=== PATIENT | male | born 1945 | race Caucasian/White ===

== ENCOUNTER → 2020-06-27 | Day surgery (SDC) | payer OTHER ==
[2020-06-24 14:57] LABS: BASOPHILS # (AUTO) 0.1 (0.0-0.1); BASOPHILS % 0.3 % (0.0-1.0); EOSINOPHILS # (AUTO) 0.1 (0.0-0.4); EOSINOPHILS % 0.4 % (0.0-6.0); HEMATOCRIT 43.4 % (38.2-49.6); HEMOGLOBIN 13.9 g/dL (14.0-18.0); LYMPHOCYTES # (AUTO) 6.7 (1.0-3.2); LYMPHOCYTES % 39.7 % (18.0-39.1); MEAN CORPUSCULAR HEMOGLOBIN 31.8 pg (28-32); MEAN CORPUSCULAR VOLUME 99.3 fL (81-99); MONOCYTES % 6.1 % (4.4-11.3); NEUTROPHILS # (AUTO) 8.9 (2.1-6.9); NEUTROPHILS % 53.1 % (38.7-80.0); PLATELET COUNT 161 x10e3/uL (140-360); RED BLOOD COUNT 4.37 x10e6/uL (4.3-5.7)
[~2020-06-27] MED LIST: BELBUCA300 MCG PO; ECOTRIN81 MG PO; FUROSEMIDE40 MG PO; GABAPENTIN300 MG PO; LIDOCAINE HCL 2% LOCAL INJ 5 ML SDV VIAL INJ ONE; MIDAZOLAM HCL 2 MG/2 ML VIAL ONE; OSCAL; PROPOFOL IV EMULSION 10 MG/ML 20 ML VIAL ONE; ROPINIROLE HCL1 MG PO; VASOTEC5 MG PO; ZETIA10 MG PO
[2020-06-27 12:39] VITALS: BP 129/69
== END | disposition home or self-care (01) ==
LOC: OR 08:31
PROVIDERS: ATTEND Internal Medicine Gastroenterology
DX: Z12.11 Encounter for screening for malignant neoplasm of colon (principal); K63.5 Polyp of colon; K57.30 Diverticulosis of large intestine without perforation or abscess without bleeding; K44.9 Diaphragmatic hernia without obstruction or gangrene; I25.810 Atherosclerosis of coronary artery bypass graft(s) without angina pectoris; E66.01 Morbid (severe) obesity due to excess calories; I10 Essential (primary) hypertension; J45.909 Unspecified asthma, uncomplicated; E78.00 Pure hypercholesterolemia, unspecified; K42.9 Umbilical hernia without obstruction or gangrene; Z01.810 Encounter for preprocedural cardiovascular examination; Z01.812 Encounter for preprocedural laboratory examination; Z20.828 Contact with and (suspected) exposure to other viral communicable diseases; Z79.82 Long term (current) use of aspirin; Z68.41 Body mass index [BMI] 40.0-44.9, adult; Z95.1 Presence of aortocoronary bypass graft
CPT/HCPCS: 36415; 45385; 85025; 93005; J2001; J2250; J2704; U0002; 45378

== ENCOUNTER 2021-11-23 12:15 | Inpatient (IN) | payer MEDICARE, OTHER ==
[~2021-11-23] VITALS: Ht 177.8 cm; Wt 116.1 kg
[2021-11-23] VITALS (14 sets, daily range): BP systolic 90–132; BP diastolic 45–62
[~2021-11-23 12:15] MED LIST changes: -LIDOCAINE HCL 2% LOCAL INJ 5 ML SDV VIAL INJ ONE; -MIDAZOLAM HCL 2 MG/2 ML VIAL ONE; -PROPOFOL IV EMULSION 10 MG/ML 20 ML VIAL ONE
[2021-11-23] MEDS ORDERED: GLUCAGON FOR INJ 1 MG VIAL IV ONE (13:00)
[2021-11-23] MEDS ORDERED: SODIUM CHLORIDE 0.9% 500ML 500 ML IV ONE ×2 (13:00→15:45)
[2021-11-23] MEDS ORDERED: ONDANSETRON HCL INJ 2MG/ML 2ML 2 MG/ML VIAL IV NR (13:00)
[2021-11-23 13:18] LABS: BASOPHILS % 0.2 % (0.0-1.0); EOSINOPHILS # (AUTO) 0.1 (0.0-0.4); EOSINOPHILS % 0.7 % (0.0-6.0); HEMATOCRIT 40.2 % (38.2-49.6); HEMOGLOBIN 13.2 g/dL (14.0-18.0); LYMPHOCYTES % 29.5 % (18.0-39.1); MEAN CORPUSCULAR HEMOGLOBIN 32.1 pg (28-32); MEAN CORPUSCULAR HGB CONC 32.8 g/dL (31-35); MEAN CORPUSCULAR VOLUME 97.8 fL (81-99); MONOCYTES # (AUTO) 1.2 (0.2-0.8); MONOCYTES % 9.1 % (4.4-11.3); NEUTROPHILS # (AUTO) 8.1 (2.1-6.9); NEUTROPHILS % 60.1 % (38.7-80.0); PLATELET COUNT 173 x10e3/uL (140-360); RED BLOOD COUNT 4.11 x10e6/uL (4.3-5.7); RED CELL DISTRIBUTION WIDTH 13.5 % (11.7-14.4)
[2021-11-23] MEDS ORDERED: COREG6.25 MG PO (13:25)
[2021-11-23] MEDS ORDERED: SPIRONOLACTONE25 MG PO (13:25)
[2021-11-23 13:42] LABS: B-TYPE NATRIURETIC PEPTIDE2 40.9 pg/mL (0-100)
[2021-11-23 13:44] LABS: INR 0.98; PROTHROMBIN TIME 13.9 seconds (11.9-14.5)
[2021-11-23 13:45] LABS: PARTIAL THROMBOPLASTIN TIME 26.4 seconds (23.8-35.5)
[2021-11-23 13:57] LABS: ALBUMIN/GLOBULIN RATIO 0.8 (0.8-2.0); ANION GAP 20.8 mmol/L (8-16); CALCIUM 8.3 mg/dL (8.4-10.2); CREATININE, SERUM 3.99 mg/dL (0.72-1.25); MAGNESIUM 2.6 MG/DL (1.3-2.1); POTASSIUM 3.8 mmol/L (3.5-5.1)
[2021-11-23 14:03] LABS: CREATINE KINASE MB 5.9 ng/mL (0-5.0)
[2021-11-23] MEDS ORDERED: Vancomycin IV 1 GM in SODIUM CHLORIDE 0.9% 250ML 250 ML IV ONE (14:15)
[2021-11-23] MEDS ORDERED: CEFEPIME 2 GM in SODIUM CHLORIDE 0.9% 100 ML IV ONE (14:15)
[2021-11-23] MEDS ORDERED: SODIUM CHLORIDE 0.9% 1000ML 1,000 ML IV STA (16:09)
[2021-11-23] MEDS ORDERED: FAMOTIDINE 20 MG/2 ML VIAL IV SCH (16:30)
[2021-11-23] MEDS ORDERED: ONDANSETRON HCL INJ 2MG/ML 2ML 2 MG/ML VIAL IV PRN (16:30)
[2021-11-23 17:11] LABS: CLARITY,URINE CLEAR (CLEAR); COLOR,URINE YELLOW (YELLOW); KETONES,URINE NEGATIVE (NEGATIVE); LEUKOCYTE ESTERASE ,URINE NEGATIVE (NEGATIVE); NITRITE,URINE NEGATIVE (NEGATIVE); PROTEIN,URINE DIPSTICK 2+ (NEGATIVE); URINE UROBILINOGEN 0.2 mg/dL (0.2 - 1)
[2021-11-23 17:18] LABS: BACTERIA,URINE MODERATE /HPF; EPITHELIAL CELLS,URINE FEW /LPF; HYALINE CASTS 0-1 (0-1); RBC,URINE 0-5 /HPF (0-5); WBC,URINE (MAN) 0-5 /HPF (0-5)
[2021-11-23] MEDS ORDERED: PNEUMOCOCCAL VACCINE POLYVALENT 23 MCG/0.5 ML VIAL IM PRN (18:00)
[2021-11-23 19:07] LABS: CREATINE KINASE 127 IU/L (30-200)
[2021-11-23] MEDS ORDERED: DOCUSATE SODIUM 100 MG CAP PO PRN (22:45)
[2021-11-23] MEDS ORDERED: GUAIFENESIN/DEXTROMETHORPHAN LIQD 5 ML UDC PO PRN (22:45)
[2021-11-23] MEDS ORDERED: MELATONIN 3 MG TAB PO PRN (22:45)
[2021-11-23] MEDS ORDERED: ACETAMINOPHEN 325 MG TAB PO PRN (22:45)
[2021-11-23] MEDS ORDERED: ALBUTEROL SULF 0.083% NEB SOLN 3 ML NEB NEB PRN (22:45)
[2021-11-23] MEDS ORDERED: HYDRALAZINE HCL 20 MG/ML VIAL IV PRN (22:45)
[2021-11-23] MEDS ORDERED: MAGNESIUM/ALUMINUM/SIMETHICONE 30 ML UDC PO PRN (22:45)
[2021-11-23] MEDS: ROPINIROLE HCL 1 MG TAB PO SCH (23:00)
[2021-11-24] VITALS (80 sets, daily range): BP systolic 68–140; BP diastolic 40–99
[2021-11-24] MEDS: Doxycycline IV 100 MG in SODIUM CHLORIDE 0.9% 100 ML IV SCH ×3 (00:27→21:51)
[2021-11-24 01:09] LABS: CREATINE KINASE 120 IU/L (30-200)
[2021-11-24 05:10] LABS: BASOPHILS % 0.3 % (0.0-1.0); EOSINOPHILS # (AUTO) 0.2 (0.0-0.4); EOSINOPHILS % 1.2 % (0.0-6.0); HEMATOCRIT 43.3 % (38.2-49.6); HEMOGLOBIN 14.3 g/dL (14.0-18.0); LYMPHOCYTES # (AUTO) 4.5 (1.0-3.2); LYMPHOCYTES % 33.1 % (18.0-39.1); MEAN CORPUSCULAR HEMOGLOBIN 32.1 pg (28-32); MEAN CORPUSCULAR VOLUME 97.1 fL (81-99); MONOCYTES # (AUTO) 1.2 (0.2-0.8); MONOCYTES % 8.7 % (4.4-11.3); NEUTROPHILS # (AUTO) 7.7 (2.1-6.9); NEUTROPHILS % 56.5 % (38.7-80.0); PLATELET COUNT 215 x10e3/uL (140-360); RED BLOOD COUNT 4.46 x10e6/uL (4.3-5.7); RED CELL DISTRIBUTION WIDTH 13.2 % (11.7-14.4)
[2021-11-24 05:48] LABS: ALBUMIN 2.9 g/dL (3.5-5.0); ALBUMIN/GLOBULIN RATIO 0.7 (0.8-2.0); ANION GAP 17.9 mmol/L (8-16); CALCIUM 8.5 mg/dL (8.4-10.2); CHOL/HDL RATIO 4.5 (3.9-4.7); CREATININE, SERUM 2.53 mg/dL (0.72-1.25); POTASSIUM 3.9 mmol/L (3.5-5.1)
[2021-11-24 05:49] LABS: CREATINE KINASE 120 IU/L (30-200); MAGNESIUM 2.5 MG/DL (1.3-2.1); PHOSPHORUS 4.6 MG/DL (2.3-4.7)
[2021-11-24] MEDS: HEPARIN SOD (PORCINE) 5,000 UNIT/ML VIAL SC SCH ×3 (06:00→21:51)
[2021-11-24 06:11] LABS: FREE THYROXINE INDEX 2.069 (1.4-3.8); THYROID STIMULATING HORMONE 2.647 uIU/mL (0.350-4.940)
[2021-11-24 06:12] LABS: FERRITIN 214.47 ng/mL (21.81-274.66)
[2021-11-24] MEDS: FAMOTIDINE 20 MG/2 ML VIAL IV SCH (08:33)
[2021-11-24] MEDS: DOCUSATE SODIUM 100 MG CAP PO SCH ×2 (08:33→12:20)
[2021-11-24] MEDS: ASPIRIN 325 MG TAB EC PO SCH (08:33)
[2021-11-24] MEDS: EZETIMIBE 10 MG TAB PO SCH (08:34)
[2021-11-24] MEDS: MULTIVITAMINS/MINERALS TAB PO SCH (08:34)
[2021-11-24] MEDS: SENNOSIDES 8.6 MG TAB PO SCH (08:34)
[2021-11-24] MEDS ORDERED: HEPARIN SOD (PORCINE) 5,000 UNIT/ML VIAL SC SCH (09:00)
[2021-11-24] MEDS ORDERED: GABAPENTIN 300 MG CAP PO SCH (09:00)
[2021-11-24] MEDS: GABAPENTIN 300 MG CAP PO SCH ×2 (09:30→21:50)
[2021-11-24 10:10] LABS: EOSINOPHILS % (MANUAL) 1 % (0-7); LYMPHOCYTES % (MANUAL) 27 % (19-48); MONOCYTES % (MANUAL) 8 % (3.4-9.0); NEUTROPHILS % (MANUAL) 64 % (40-74)
[2021-11-24 10:11] LABS: PLATELET ESTIMATE ADEQUATE; PLATELET MORPHOLOGY COMMENT FEW LARGE; RBC MORPHOLOGY COMMENT NORMAL
[2021-11-24] MEDS ORDERED: JARDIANCE10 MG PO (15:49)
[2021-11-24] MEDS ORDERED: SENNA8.6 MG PO (15:52)
[2021-11-24] MEDS ORDERED: DOCUSATE SODIU100 MG PO (15:52)
[2021-11-24] MEDS: ROPINIROLE HCL 1 MG TAB PO SCH (21:50)
[2021-11-25] VITALS (95 sets, daily range): BP systolic 61–137; BP diastolic 40–93
[2021-11-25 04:59] LABS: BASOPHILS % 0.3 % (0.0-1.0); EOSINOPHILS # (AUTO) 0.3 (0.0-0.4); EOSINOPHILS % 2.5 % (0.0-6.0); HEMATOCRIT 42.4 % (38.2-49.6); HEMOGLOBIN 13.8 g/dL (14.0-18.0); LYMPHOCYTES # (AUTO) 5.1 (1.0-3.2); LYMPHOCYTES % 46.4 % (18.0-39.1); MEAN CORPUSCULAR HEMOGLOBIN 31.9 pg (28-32); MEAN CORPUSCULAR HGB CONC 32.5 g/dL (31-35); MEAN CORPUSCULAR VOLUME 97.9 fL (81-99); MONOCYTES # (AUTO) 0.9 (0.2-0.8); MONOCYTES % 7.8 % (4.4-11.3); NEUTROPHILS # (AUTO) 4.7 (2.1-6.9); NEUTROPHILS % 42.7 % (38.7-80.0); PLATELET COUNT 195 x10e3/uL (140-360); RED BLOOD COUNT 4.33 x10e6/uL (4.3-5.7); RED CELL DISTRIBUTION WIDTH 13.2 % (11.7-14.4)
[2021-11-25 05:39] LABS: ALBUMIN 2.9 g/dL (3.5-5.0); ALBUMIN/GLOBULIN RATIO 0.8 (0.8-2.0); CALCIUM 8.6 mg/dL (8.4-10.2); CREATININE, SERUM 1.46 mg/dL (0.72-1.25); MAGNESIUM 2.3 MG/DL (1.3-2.1)
[2021-11-25] MEDS: HEPARIN SOD (PORCINE) 5,000 UNIT/ML VIAL SC SCH ×3 (06:10→21:34)
[2021-11-25] MEDS: MULTIVITAMINS/MINERALS TAB PO SCH (08:23)
[2021-11-25] MEDS: GABAPENTIN 300 MG CAP PO SCH ×2 (08:23→21:33)
[2021-11-25] MEDS: FAMOTIDINE 20 MG/2 ML VIAL IV SCH (08:23)
[2021-11-25] MEDS: ASPIRIN 325 MG TAB EC PO SCH (08:23)
[2021-11-25] MEDS: EZETIMIBE 10 MG TAB PO SCH (08:24)
[2021-11-25] MEDS: DOCUSATE SODIUM 100 MG CAP PO SCH (08:24)
[2021-11-25] MEDS: SENNOSIDES 8.6 MG TAB PO SCH (08:24)
[2021-11-25] MEDS: Doxycycline IV 100 MG in SODIUM CHLORIDE 0.9% 100 ML IV SCH ×2 (10:24→21:33)
[2021-11-25 15:55] LABS: CREATININE,URINE RANDOM 55.82 mg/dL (63-166); TOTAL PROTEIN 24HR, URINE 308.1 mg/24hr (50-100); TOTAL PROTEIN, URINE 10.7 mg/dL (1-14)
[2021-11-25] MEDS: ROPINIROLE HCL 1 MG TAB PO SCH (21:33)
[2021-11-26] VITALS (44 sets, daily range): BP systolic 86–154; BP diastolic 42–127
[2021-11-26 05:06] LABS: BASOPHILS % 0.3 % (0.0-1.0); EOSINOPHILS # (AUTO) 0.2 (0.0-0.4); EOSINOPHILS % 1.9 % (0.0-6.0); HEMATOCRIT 41.9 % (38.2-49.6); HEMOGLOBIN 13.8 g/dL (14.0-18.0); LYMPHOCYTES # (AUTO) 4.9 (1.0-3.2); LYMPHOCYTES % 44.4 % (18.0-39.1); MEAN CORPUSCULAR HEMOGLOBIN 31.7 pg (28-32); MEAN CORPUSCULAR HGB CONC 32.9 g/dL (31-35); MEAN CORPUSCULAR VOLUME 96.1 fL (81-99); MONOCYTES # (AUTO) 0.8 (0.2-0.8); MONOCYTES % 7.4 % (4.4-11.3); NEUTROPHILS % 45.6 % (38.7-80.0); PLATELET COUNT 181 x10e3/uL (140-360); RED BLOOD COUNT 4.36 x10e6/uL (4.3-5.7); RED CELL DISTRIBUTION WIDTH 13.2 % (11.7-14.4)
[2021-11-26 05:28] LABS: ALBUMIN 2.9 g/dL (3.5-5.0); ALBUMIN/GLOBULIN RATIO 0.8 (0.8-2.0); ANION GAP 12.2 mmol/L (8-16); CALCIUM 8.6 mg/dL (8.4-10.2); CREATININE, SERUM 1.04 mg/dL (0.72-1.25); MAGNESIUM 2.1 MG/DL (1.3-2.1); POTASSIUM 4.2 mmol/L (3.5-5.1)
[2021-11-26] MEDS: HEPARIN SOD (PORCINE) 5,000 UNIT/ML VIAL SC SCH ×3 (05:42→22:00)
[2021-11-26] MEDS: ASPIRIN 325 MG TAB EC PO SCH (08:05)
[2021-11-26] MEDS: FAMOTIDINE 20 MG/2 ML VIAL IV SCH (08:05)
[2021-11-26] MEDS: EZETIMIBE 10 MG TAB PO SCH (08:05)
[2021-11-26] MEDS: SENNOSIDES 8.6 MG TAB PO SCH (08:05)
[2021-11-26] MEDS: MULTIVITAMINS/MINERALS TAB PO SCH (08:05)
[2021-11-26] MEDS: GABAPENTIN 300 MG CAP PO SCH ×2 (08:05→21:58)
[2021-11-26] MEDS: DOCUSATE SODIUM 100 MG CAP PO SCH (08:05)
[2021-11-26 08:16] LABS: EOSINOPHILS % (MANUAL) 1 % (0-7); LYMPHOCYTES % (MANUAL) 43 % (19-48); MONOCYTES % (MANUAL) 4 % (3.4-9.0); NEUTROPHILS % (MANUAL) 52 % (40-74); PLATELET ESTIMATE ADEQUATE; PLATELET MORPHOLOGY COMMENT NORMAL; RBC MORPHOLOGY COMMENT NORMAL
[2021-11-26] MEDS: Doxycycline IV 100 MG in SODIUM CHLORIDE 0.9% 100 ML IV SCH ×2 (11:26→21:59)
[2021-11-26] MEDS: ROPINIROLE HCL 1 MG TAB PO SCH (21:58)
[2021-11-27] VITALS (7 sets, daily range): BP systolic 96–141; BP diastolic 57–69
[2021-11-27] MEDS: HEPARIN SOD (PORCINE) 5,000 UNIT/ML VIAL SC SCH ×3 (03:11→22:00)
[2021-11-27 06:29] LABS: BASOPHILS # (AUTO) 0.1 (0.0-0.1); BASOPHILS % 0.6 % (0.0-1.0); EOSINOPHILS # (AUTO) 0.2 (0.0-0.4); EOSINOPHILS % 2.3 % (0.0-6.0); HEMATOCRIT 40.9 % (38.2-49.6); HEMOGLOBIN 13.4 g/dL (14.0-18.0); LYMPHOCYTES # (AUTO) 4.3 (1.0-3.2); LYMPHOCYTES % 47.5 % (18.0-39.1); MEAN CORPUSCULAR HEMOGLOBIN 31.8 pg (28-32); MEAN CORPUSCULAR HGB CONC 32.8 g/dL (31-35); MEAN CORPUSCULAR VOLUME 97.1 fL (81-99); MONOCYTES # (AUTO) 0.8 (0.2-0.8); MONOCYTES % 8.7 % (4.4-11.3); NEUTROPHILS # (AUTO) 3.6 (2.1-6.9); NEUTROPHILS % 40.6 % (38.7-80.0); PLATELET COUNT 153 x10e3/uL (140-360); RED BLOOD COUNT 4.21 x10e6/uL (4.3-5.7); RED CELL DISTRIBUTION WIDTH 13.3 % (11.7-14.4)
[2021-11-27 06:56] LABS: ALBUMIN 2.9 g/dL (3.5-5.0); ALBUMIN/GLOBULIN RATIO 0.8 (0.8-2.0); ANION GAP 12.1 mmol/L (8-16); CALCIUM 8.5 mg/dL (8.4-10.2); CREATININE, SERUM 0.87 mg/dL (0.72-1.25); POTASSIUM 4.1 mmol/L (3.5-5.1)
[2021-11-27 08:50] LABS: EOSINOPHILS % (MANUAL) 1 % (0-7); LYMPHOCYTES % (MANUAL) 39 % (19-48); MONOCYTES % (MANUAL) 10 % (3.4-9.0); NEUTROPHILS % (MANUAL) 50 % (40-74)
[2021-11-27 08:51] LABS: PLATELET ESTIMATE ADEQUATE; PLATELET MORPHOLOGY COMMENT NORMAL; RBC MORPHOLOGY COMMENT NORMAL
[2021-11-27] MEDS: DOCUSATE SODIUM 100 MG CAP PO SCH (09:00)
[2021-11-27] MEDS: GABAPENTIN 300 MG CAP PO SCH ×2 (09:00→21:00)
[2021-11-27] MEDS: SENNOSIDES 8.6 MG TAB PO SCH (09:00)
[2021-11-27] MEDS: ASPIRIN 325 MG TAB EC PO SCH (09:00)
[2021-11-27] MEDS: EZETIMIBE 10 MG TAB PO SCH (09:00)
[2021-11-27] MEDS: MULTIVITAMINS/MINERALS TAB PO SCH (09:00)
[2021-11-27] MEDS: Doxycycline IV 100 MG in SODIUM CHLORIDE 0.9% 100 ML IV SCH (09:04)
[2021-11-27] MEDS: FAMOTIDINE 20 MG/2 ML VIAL IV SCH (09:04)
[2021-11-27] MEDS ORDERED: SODIUM CHLORIDE 0.9% 250ML 250 ML ONE (09:19)
[2021-11-27] MEDS ORDERED: REGADENOSON 0.4 MG/5 ML SYR IV ONE (12:11)
[2021-11-27] MEDS: ROPINIROLE HCL 1 MG TAB PO SCH (21:00)
[2021-11-27] MEDS: DOXYCYCLINE HYCLATE TABLET 100 MG TAB PO SCH (21:00)
[2021-11-28 01:00] VITALS: BP 141/67
[2021-11-28 01:21] VITALS: BP 102/46
[2021-11-28 05:28] VITALS: BP 134/72
[2021-11-28] MEDS: HEPARIN SOD (PORCINE) 5,000 UNIT/ML VIAL SC SCH (06:28)
[2021-11-28 08:24] VITALS: BP 133/69
[2021-11-28] MEDS: ASPIRIN 325 MG TAB EC PO SCH (09:16)
[2021-11-28] MEDS: MULTIVITAMINS/MINERALS TAB PO SCH (09:16)
[2021-11-28] MEDS: SENNOSIDES 8.6 MG TAB PO SCH (09:16)
[2021-11-28] MEDS: DOCUSATE SODIUM 100 MG CAP PO SCH (09:16)
[2021-11-28] MEDS: FAMOTIDINE 20 MG/2 ML VIAL IV SCH (09:16)
[2021-11-28] MEDS: GABAPENTIN 300 MG CAP PO SCH (09:17)
[2021-11-28] MEDS: EZETIMIBE 10 MG TAB PO SCH (09:20)
[2021-11-28] MEDS: DOXYCYCLINE HYCLATE TABLET 100 MG TAB PO SCH (09:20)
[2021-11-28] MEDS ORDERED: SODIUM CHLORIDE 0.9% 100 ML ONE (09:31)
[2021-11-28] MEDS ORDERED: DOXYCYCLINE HY100 MG PO (11:45)
[2021-11-28] MEDS ORDERED: ONDANSETRON HCL 4 MG ORAL DISINTEGRATING TAB PO PRN (12:45)
[2021-11-28 13:09] VITALS: BP 138/93
[2021-11-29] MEDS ORDERED: FAMOTIDINE 20 MG TAB PO SCH (07:30)
== END 2021-11-28 13:12 | disposition home or self-care (01) | DRG 291 ==
LOC: ER 12:20 → ERHOLD 16:04 → ICU 17:24 → MED/SURG3 11-26 17:12
PROVIDERS: ADMIT Internal Medicine; ATTEND Internal Medicine
PROC: 02HV33Z Insertion of Infusion Device into Superior Vena Cava, Percutaneous Approach (ICD-10-PCS; principal; 2021-11-23)
PROC: 3E0234Z Introduction of Serum, Toxoid and Vaccine into Muscle, Percutaneous Approach (ICD-10-PCS; 2021-11-23)
DX: I13.0 Hypertensive heart and chronic kidney disease with heart failure and stage 1 through stage 4 chronic kidney disease, or unspecified chronic kidney disease (principal); R57.0 Cardiogenic shock; I50.43 Acute on chronic combined systolic (congestive) and diastolic (congestive) heart failure; C91.10 Chronic lymphocytic leukemia of B-cell type not having achieved remission; N17.9 Acute kidney failure, unspecified; I45.2 Bifascicular block; D84.9 Immunodeficiency, unspecified; I25.10 Atherosclerotic heart disease of native coronary artery without angina pectoris; Z95.1 Presence of aortocoronary bypass graft; J45.909 Unspecified asthma, uncomplicated; Z20.822 Contact with and (suspected) exposure to COVID-19; R60.0 Localized edema; E66.9 Obesity, unspecified; Z68.36 Body mass index [BMI] 36.0-36.9, adult; I27.20 Pulmonary hypertension, unspecified; J44.9 Chronic obstructive pulmonary disease, unspecified; I87.2 Venous insufficiency (chronic) (peripheral); I89.0 Lymphedema, not elsewhere classified; E88.09 Other disorders of plasma-protein metabolism, not elsewhere classified; H91.90 Unspecified hearing loss, unspecified ear; Z79.899 Other long term (current) drug therapy; D63.8 Anemia in other chronic diseases classified elsewhere; N18.9 Chronic kidney disease, unspecified; Z88.8 Allergy status to other drugs, medicaments and biological substances; Z82.49 Family history of ischemic heart disease and other diseases of the circulatory system; Z96.651 Presence of right artificial knee joint; I95.2 Hypotension due to drugs; E78.5 Hyperlipidemia, unspecified; Z23 Encounter for immunization; E78.2 Mixed hyperlipidemia
CPT/HCPCS: 36415; 36555; 70450; 71045; 76770; 78452; 80053; 80061; 81001; 81050; 82550; 82553; 82570; 82607; 82728; 82746; 83540; 83605; 83735; 83880; 84100; 84156; 84436; 84443; 84466; 84479; 84484; 85025; 85610; 85730; 87040; 87086; 93005; 93017; 93306; 93970; 94799; 97139; 99251; 99284; A9502; J0692; J1610; J1644; J2405; J3370; J7030; J7040; J7050; U0002

== ENCOUNTER → 2024-09-07 | Day surgery (SDC) | payer MEDICARE, OTHER ==
[2024-09-05 12:07] LABS: BASOPHILS % 0.3 % (0.0-1.0); EOSINOPHILS # (AUTO) 0.2 (0.0-0.4); EOSINOPHILS % 1.8 % (0.0-6.0); HEMATOCRIT 40.3 % (38.2-49.6); HEMOGLOBIN 12.9 g/dL (14.0-18.0); LYMPHOCYTES # (AUTO) 3.2 (1.0-3.2); MEAN CORPUSCULAR HEMOGLOBIN 30.1 pg (28-32); MEAN CORPUSCULAR VOLUME 93.9 fL (81-99); MONOCYTES # (AUTO) 0.8 (0.2-0.8); MONOCYTES % 8.6 % (4.4-11.3); NEUTROPHILS # (AUTO) 5.5 (2.1-6.9); PLATELET COUNT 200 x10e3/uL (140-360); RED BLOOD COUNT 4.29 x10e6/uL (4.3-5.7); RED CELL DISTRIBUTION WIDTH 14.2 % (11.7-14.4); WHITE BLOOD COUNT 9.79 x10e3/uL (4.8-10.8)
[2024-09-05 13:29] LABS: EOSINOPHILS % (MANUAL) 2 % (0-7); LYMPHOCYTES % (MANUAL) 35 % (19-48); MONOCYTES % (MANUAL) 3 % (3.4-9.0); NEUTROPHILS % (MANUAL) 60 % (40-74); PLATELET ESTIMATE ADEQUATE; PLATELET MORPHOLOGY COMMENT NORMAL; RBC MORPHOLOGY COMMENT NORMAL
[~2024-09-07] MED LIST changes: +CEPHALEXIN500 MG PO; +COREG6.25 MG PO; +DOCUSATE SODIU100 MG PO; +DOXYCYCLINE HY100 MG PO; +EPHEDRINE SULFATE INJ 50 MG/ML VIAL ONE; +GLUCAGON FOR INJ 1 MG VIAL ONE; +JARDIANCE10 MG PO; +LIDOCAINE HCL 2% LOCAL INJ 5 ML SDV VIAL INJ ONE; +MELOXICAM7.5 MG PO; +PLAVIX75 MG PO; +PROBIOTIC & AC1 EACH PO; +PROPOFOL IV EMULSION 10 MG/ML 20 ML VIAL ONE; +SENNA8.6 MG PO; +SPIRONOLACTONE25 MG PO
[2024-09-07] MEDS: LACTATED RINGER'S 1,000 ML ONE (09:09)
[2024-09-07 10:50] VITALS: TEMP 98.3
[2024-09-07 11:10] VITALS: BP 137/48; PULSE 58; RESP 16; O2SAT 98
== END | disposition home or self-care (01) ==
LOC: OR 07:30
PROVIDERS: ATTEND Internal Medicine Gastroenterology
DX: Z09 Encounter for follow-up examination after completed treatment for conditions other than malignant neoplasm (principal); Z86.0100 Personal history of colon polyps, unspecified; K57.30 Diverticulosis of large intestine without perforation or abscess without bleeding; K59.00 Constipation, unspecified; K64.8 Other hemorrhoids; Z71.3 Dietary counseling and surveillance; G47.33 Obstructive sleep apnea (adult) (pediatric); I25.810 Atherosclerosis of coronary artery bypass graft(s) without angina pectoris; I11.0 Hypertensive heart disease with heart failure; I50.9 Heart failure, unspecified; Z71.89 Other specified counseling; E78.5 Hyperlipidemia, unspecified; Z01.810 Encounter for preprocedural cardiovascular examination; Z01.812 Encounter for preprocedural laboratory examination; Z79.82 Long term (current) use of aspirin; Z79.02 Long term (current) use of antithrombotics/antiplatelets; Z79.1 Long term (current) use of non-steroidal anti-inflammatories (NSAID); Z79.899 Other long term (current) drug therapy; Z68.24 Body mass index [BMI] 24.0-24.9, adult; Z86.19 Personal history of other infectious and parasitic diseases; Z95.1 Presence of aortocoronary bypass graft; Z95.5 Presence of coronary angioplasty implant and graft; Z85.828 Personal history of other malignant neoplasm of skin
CPT/HCPCS: 36415; 45378; 85025; 93005; J1610; J2003; J2704; J7121